=== PATIENT | female | born 1950 | race Caucasian/White ===

== ENCOUNTER 2025-07-20 09:52 | Emergency (ER) | payer MEDICARE, OTHER, SELFPAY ==
[2025-07-20 09:57] VITALS: BP 128/69
--- NOTE | 2025-07-20 10:23 | ED.GENMED ---
History of Present Illness
General
Chief Complaint: Skin Surface Trauma
Source: patient
Time Seen by Provider: 07/20/25 10:07
History of Present Illness
History of Present Illness:
74-year-old female presenting to the emergency department for evaluation after sustaining laceration to the right next finger when a knife fell and accidentally hit her on the right index finger. No other injuries were sustained. Patient believes
her tetanus is up-to-date, she is right-hand dominant, no other injuries were sustained.
Past History
Past History
ED Past Medical History: GERD
ED Past Surgical History: Gynecological (Hysterectomy) and Other (Breast reduction surgery)
Social History
Tobacco: Non-smoker
Alcohol: None
Drug: None
Personal: Single
Living: alone
Employment: Employed
Review of Systems
Review of Systems
All Other Systems: ROS reviewed and negative except as documented in HPI and ROS
Phy Exam
Physical Exam
Physical Exam:
GENERAL: Alert , in no apparent distress
EYE: conjunctiva clear
Head: Normocephalic atraumatic
NECK: Supple,
ENT: mmm.
LUNGS: no acute respiratory distress
NEUROLOGICAL: Alert and oriented
SKIN: Warm and dry, 1 cm curvilinear laceration to the proximalmost portion of the right index finger, superficial, bleeding well-controlled with pressure.
MUSCULOSKELETAL: well perfused. Full range of motion of all digits
PSYCH: Normal and appropriate interaction.
Scores
Heart Failure Risk
Heart Failure Risk Score: Not Applicable
Heart Score for Chest Pain Patients
STEMI patient?: Not applicable
Withdrawal Assessment of Alcohol
Withdrawal Assessment Completed?: Not applicable
Course
Vital Signs
Initial and Last Documented VS:
Initial Vital Signs
Temp Pulse Resp BP Pulse Ox
97.8 F 74 18 128/69 99
07/20/25 09:57 07/20/25 09:57 07/20/25 09:57 07/20/25 09:57 07/20/25 09:57
Last Documented Vital Signs
Temp Pulse Resp BP Pulse Ox
97.8 F 74 18 128/69 99
07/20/25 09:57 07/20/25 09:57 07/20/25 09:57 07/20/25 09:57 07/20/25 10:23
Procedures
Laceration Closure
Right Second Finger:
Status of Wound: clean
Size of Wound in cm: 1
Description of Wound Edges: sharp
Preparation: cleaned with saline
Anesthesia: 1% Lidocaine
Type of Closure: single layer closure
Skin Closure Material: 5-0 nylon
Number of sutures: 4
MDM/Problems Addressed
Differential Diagnosis Includes:
Superficial laceration
no suspicion for nerve or arterial injury
No suspicion for fracture
MDM/Problems Addressed:
74-year-old female presenting to the emergency department for evaluation after sustaining laceration of the right index finger. Laceration repaired as above without difficulty. Suture removal in 10 days. Discussed wound care with patient and
spouse. Aware of return precautions to the ER.
*Pulse Oximetry
SaO2: 99
Oxygen Mode of Delivery: Room air
Patient hypoxic: not evaluated
*Critical Care Note
Total Time (30-74mins, 75-104mins- exclusive of procedures): Not Applicable
ED Attending Note
-
Portions of this chart may have been created with voice recognition software.� Occasional wrong word or��sound alike� substitutions may have occurred due to the inherent limitations of voice recognition software.
Discharge Plan
Departure
Patient Disposition: Home (Routine Discharge)
Date of Disposition: 07/20/25
Time of Disposition: 10:23
Patient with high blood pressure during this ER visit?: No
Discharge Problem:
Laceration of right index finger
Instructions: Laceration Repair With Stitches (DC)
Prescriptions:
No Action
cyclosporine [Restasis] 10 DROPS dropperette
2 drops BOTH EYES BID
[place] Jesi
1 tab PO SUSA
pantoprazole 40 MG tablet,delayed release (DR/EC)
40 mg PO DAILY 30 Days Qty: 30 0RF
ondansetron HCl 4 MG tablet
4 mg PO Q8HPRN PRN (Reason: nausea and vomiting) 7 Days Qty: 21 0RF
famotidine [Pepcid AC] 20 MG tablet
20 mg PO DAILY 30 Days Qty: 30 0RF
Activity Restrictions/Additional Instructions:
Suture removal in 7-10 days
Interventions
Interventions:
*Risk Screen - Suicide Last Done: 07/20/25 09:57
*General Assessment Last Done: 07/20/25 09:57
*Neglect/Abuse Screening Last Done: 07/20/25 09:57
*Nursing Disposition Last Done: 07/20/25 10:23
Discharge Date and Time
Discharge Date/Time: 07/20/25 10:23
Print Language: KAZAKH
== END 2025-07-20 10:23 | disposition home or self-care (01) ==
LOC: EMR 09:52
PROVIDERS: EMERGENCY PHYSICIAN Emergency Medicine; FAMILY PHYSICIAN Internal Medicine
DX: S61.210A Laceration without foreign body of right index finger without damage to nail, initial encounter (principal); W19.XXXA Unspecified fall, initial encounter
CPT/HCPCS: 12001; 99282

== ENCOUNTER 2025-07-26 15:00 | Emergency (ER) | payer MEDICARE, OTHER, SELFPAY ==
[2025-07-26 15:06] VITALS: BP 130/100
--- NOTE | 2025-07-26 16:46 | ED.SKININJ ---
HPI-Injury
General
Chief Complaint: Wound Check/Suture Removal
Source: patient
Exam Limitations: none
Time Seen by Provider: 07/26/25 16:34
Nursing documentation reviewed up to this point in time: agreed with
History of Present Illness-Injury
Initial Injury comments:
74-year-old female here for suture removal from the base of right index finger. She states the sutures were in for a week, I informed her that they probably should stay in a few days longer but she does not want to do that and she is aware that the
wound might open up again.
Past History
Past History
ED Past Medical History: GERD
ED Past Surgical History: Gynecological (Hysterectomy) and Other (Breast reduction surgery)
Social History
Tobacco: Non-smoker
Alcohol: None
Drug: None
Personal: Single
Living: alone
Employment: Employed
Review of Systems
Review of Systems
Allergies reviewed?: Yes
All Other Systems: ROS reviewed and negative except as documented in HPI and ROS
Phy Exam
Physical Exam
Physical Exam:
PHYSICAL EXAMINATION:
General: no apparent distress, not acutely ill
Neuro: alert and oriented.
Psychiatric: well kept. interactive and cooperative
Musculoskeletal: Moves with ease
Skin: Warm, pink. 5 sutures intact,, minimal redness immediately at the wound edges, surrounding skin is normal. No opening, no drainage
Course
Vital Signs
Initial and Last Documented VS:
Initial Vital Signs
Temp Pulse Resp BP Pulse Ox
98.0 F 73 16 130/100 98
07/26/25 15:07/26/25 15:07/26/25 15:07/26/25 15:07/26/25 15:06
Last Documented Vital Signs
Temp Pulse Resp BP Pulse Ox
98.0 F 73 16 130/100 98
07/26/25 15:07/26/25 15:07/26/25 15:06 07/26/25 15:06 07/26/25 16:50
MDM/Problems Addressed
MDM/Problems Addressed:
74-year-old female here for suture removal from the base of right index finger. She states the sutures were in for a week, I informed her that they probably should stay in a few days longer but she does not want to do that and she is aware that the
wound might open up again.
Sutures removed, wound edges intact, . Antibiotic ointment and Band-Aid applied
BP recheck 138/78
*Pulse Oximetry
SaO2: 98
Oxygen Mode of Delivery: Room air
Patient hypoxic: not evaluated
*Critical Care Note
Total Time (30-74mins, 75-104mins- exclusive of procedures): Not Applicable
ED Attending Note
-
Portions of this chart may have been created with voice recognition software.� Occasional wrong word or��sound alike� substitutions may have occurred due to the inherent limitations of voice recognition software.
Discharge Plan
Departure
Patient Disposition: Home (Routine Discharge)
Date of Disposition: 07/26/25
Time of Disposition: 16:48
Patient with high blood pressure during this ER visit?: No
Condition: Good
Discharge Problem:
Visit for suture removal
Instructions: Wound Care (DC)
Prescriptions:
No Action
cyclosporine [Restasis] 10 DROPS dropperette
2 drops BOTH EYES BID
[place]ian Jesi
1 tab PO SUSA
pantoprazole 40 MG tablet,delayed release (DR/EC)
40 mg PO DAILY 30 Days Qty: 30 0RF
ondansetron HCl 4 MG tablet
4 mg PO Q8HPRN PRN (Reason: nausea and vomiting) 7 Days Qty: 21 0RF
famotidine [Pepcid AC] 20 MG tablet
20 mg PO DAILY 30 Days Qty: 30 0RF
Interventions
Interventions:
*Risk Screen - Suicide Last Done: 07/26/25 15:06
*General Assessment Last Done: 07/26/25 17:14
*Neglect/Abuse Screening Last Done: 07/26/25 15:06
*ED- Fall Risk Assessment Last Done: 07/26/25 17:14
*ED COVID-19 Vaccine History Last Done: 07/26/25 17:14
*Nursing Disposition Last Done: 07/26/25 17:14
ED-Skin Assessment Last Done: 07/26/25 17:14
Discharge Date and Time
Discharge Date/Time: 07/26/25 17:15
Print Language: ZAMBIAN
== END 2025-07-26 17:15 | disposition home or self-care (01) ==
LOC: EMR 15:00
PROVIDERS: EMERGENCY PHYSICIAN Emergency Medicine; FAMILY PHYSICIAN Internal Medicine
DX: Z48.02 Encounter for removal of sutures (principal)
CPT/HCPCS: 99281